=== PATIENT | female | born 1945 | race Caucasian/White ===

== ENCOUNTER 2017-06-09 02:23 | Day surgery (SDC) | payer MEDICARE, OTHER ==
[~2017-06-09] VITALS: Ht 160 cm; Wt 59.5 kg
[~2017-06-09 02:23] MED LIST: ASPI325; ASPI325 PO; ASPI81CH PO; ATEN50 PO; Altoprev40 MG PO; BUTACE PO; CELE200; CEPH500 PO; CHLCLI; CHOL10002 PO; CITA20 PO; Carvedilol25 MG PO; DIAZ10 PO; FLUO20 PO; FURO40 PO; HYDACE5 PO; HYDR1TAB94 PO; LANS30EC; LANS30EC PO; LEVSOD50 PO; LISI20 PO; LISI5 PO; LISINOPRIL PO; LOPRESSOR; LOVA20 PO; LOVA40; METO100ER; MULVITMIND PO; NEBI10 PO; Nortriptyline H75 MG PO; OMEP20ER PO; OXYACE5T PO; PANT40 PO; POTA10T PO; POTCHL10ER PO; PREG50 PO; PROP80ER PO; Prozac PO; Prozac40 MG PO; SPIR25 PO; TRAM50 PO; UBID100 PO; VICODIN 5-3001 EACH PO; ZEGERID OTC PO; ZOCOR; [UNRECOGNIZED DRUG - REMARK]; [UNRECOGNIZED DRUG - REMARK]; [UNRECOGNIZED DRUG - REMARK]; [UNRECOGNIZED DRUG - REMARK]; [UNRECOGNIZED DRUG - REMARK]; [UNRECOGNIZED DRUG - REMARK]; [UNRECOGNIZED DRUG - REMARK]; [UNRECOGNIZED DRUG - REMARK]; [UNRECOGNIZED DRUG - REMARK]
[2017-06-09] MEDS ORDERED: PROP80ER PO (06:46)
[2017-06-09] MEDS ORDERED: FURO20 PO (06:48)
[2017-06-09] MEDS ORDERED: Estradiol1 MG VAG (06:48)
[2017-06-09] MEDS ORDERED: NITR.4SL SL (06:50)
[2018-01-10] MEDS ORDERED: DILT120 PO (12:11)
[2018-01-10] MEDS ORDERED: FURO40 PO (12:11)
== END 2017-06-09 22:49 | disposition home or self-care (01) ==
LOC: MHTC 02:23
PROC: B24BZZ4 Ultrasonography of Heart with Aorta, Transesophageal (ICD-10-PCS; principal; 2017-06-09)
DX: I08.0 Rheumatic disorders of both mitral and aortic valves (principal); I25.9 Chronic ischemic heart disease, unspecified; I70.0 Atherosclerosis of aorta; I50.20 Unspecified systolic (congestive) heart failure; I44.7 Left bundle-branch block, unspecified; I11.0 Hypertensive heart disease with heart failure; E78.5 Hyperlipidemia, unspecified; I25.2 Old myocardial infarction; K21.9 Gastro-esophageal reflux disease without esophagitis; F32.9 Major depressive disorder, single episode, unspecified; Z79.899 Other long term (current) drug therapy; E03.9 Hypothyroidism, unspecified; Z79.82 Long term (current) use of aspirin; Z87.891 Personal history of nicotine dependence
CPT/HCPCS: 93312; 93325; 99152; J2250; J3010; J7030

== ENCOUNTER 2017-07-28 14:28 | Emergency (ER) | payer MEDICARE, OTHER ==
[~2017-07-28] VITALS: Ht 160 cm; Wt 54.4 kg
[~2017-07-28 14:28] MED LIST changes: +Estradiol1 MG VAG; +FURO20 PO; +NITR.4SL SL
[2017-07-28 15:35] LABS: BASOPHILS PERCENT AUTO 1 % (0-2); EOSINOPHILS ABSOLUTE AUTO 0.16 K/mm3 (0.00-0.68); EOSINOPHILS PERCENT AUTO 2 % (0-6); Hematocrit 43.1 % (33.0-51.0); Hemoglobin 13.9 g/dL (11.5-16.0); IMMATURE GRAN ABSOLUTE AUTO 0.03 K/mm3 (0.00-0.10); IMMATURE GRAN PERCENT AUTO 0 % (0-1); LYMPHOCYTES ABSOLUTE AUTO 1.46 K/mm3 (0.84-5.20); LYMPHOCYTES PERCENT AUTO 20 % (21-46); MONOCYTES PERCENT AUTO 11 % (4-13); Mean Corpuscular HGB Conc 32.3 g/dL (31.5-36.5); Mean Corpuscular Volume 93 fL (80-100); NEUTROPHILS PERCENT AUTO 64 % (41-73); Platelet Count 295 K/mm3 (150-400); RDW Coefficient Variation 13.2 % (11.7-14.2); RDW Standard Deviation 45.6 fL (35.1-46.3); Red Blood Cell Count 4.63 M/mm3 (3.80-5.20); White Blood Cell Count 7.15 K/mm3 (4.00-11.30)
[2017-07-28] MEDS ORDERED: POTCHL10ER PO (15:44)
[2017-07-28] MEDS ORDERED: LISI5 PO (15:45)
[2017-07-28] MEDS ORDERED: Lovastatin20 MG PO (15:45)
[2017-07-28 15:54] LABS: Alanine Aminotransfer (ALT/SGP 21 U/L (12-78); Albumin, Blood 4.1 g/dL (3.4-5.0); Albumin/Globulin Ratio 0.9 (0.8-1.8); Alk Phos 124 U/L (50-136); Anion Gap 10 mmol/L (6-16); Aspartate Aminotrans (AST/SGOT 20 U/L (12-37); Bilirubin, Total 0.3 mg/dL (0.1-1.0); Blood Urea Nitrogen 25 mg/dL (8-24); Bun/Creatinine Ratio 22.1 (12.0-20.0); CO2, Blood 26 mmol/L (21-32); Calcium, Blood 9.8 mg/dL (8.5-10.1); Chloride, Blood 101 mmol/L (98-108); Creatinine, Blood 1.13 mg/dL (0.40-1.00); Globulin, Blood 4.5 g/dL (2.2-4.0); Glomerular Filtration Rate 50 (60-); Glucose, Blood 91 mg/dL (70-99); Potassium, Blood 4.2 mmol/L (3.5-5.5); Sodium, Blood 137 mmol/L (136-145); Total Protein, Blood 8.6 g/dL (6.4-8.2)
[2017-07-28 16:44] LABS: Troponin I <0.015 ng/mL (0.000-0.040)
[2018-01-10] MEDS ORDERED: FURO40 PO (12:11)
[2018-01-10] MEDS ORDERED: DILT120 PO (12:11)
== END 2017-07-28 17:35 | disposition home or self-care (01) ==
LOC: ER 14:28
PROVIDERS: Emergency Medicine
DX: R53.1 Weakness (principal); Z88.8 Allergy status to other drugs, medicaments and biological substances; Z79.899 Other long term (current) drug therapy; Z79.82 Long term (current) use of aspirin; I25.2 Old myocardial infarction; I10 Essential (primary) hypertension; E78.5 Hyperlipidemia, unspecified; I48.91 Unspecified atrial fibrillation; F32.9 Major depressive disorder, single episode, unspecified; Z87.891 Personal history of nicotine dependence
CPT/HCPCS: 36415; 71046; 80053; 81000; 84484; 85025; 93005; 93010; 99283

== ENCOUNTER 2018-01-01 20:21 | Inpatient (IN) | payer MEDICARE, OTHER ==
[~2018-01-01] VITALS: Ht 160 cm; Wt 56.0 kg
[~2018-01-01 20:21] MED LIST changes: +Lovastatin20 MG PO
[2018-01-01] MEDS ORDERED: DULO30 PO (20:45)
[2018-01-01 21:03] LABS: BASOPHILS ABSOLUTE AUTO 0.16 K/mm3 (0.00-0.23); BASOPHILS PERCENT AUTO 2 % (0-2); EOSINOPHILS ABSOLUTE AUTO 0.32 K/mm3 (0.00-0.68); EOSINOPHILS PERCENT AUTO 3 % (0-6); IMMATURE GRAN ABSOLUTE AUTO 0.03 K/mm3 (0.00-0.10); IMMATURE GRAN PERCENT AUTO 0 % (0-1); LYMPHOCYTES ABSOLUTE AUTO 2.42 K/mm3 (0.84-5.20); LYMPHOCYTES PERCENT AUTO 24 % (21-46); MONOCYTES PERCENT AUTO 12 % (4-13); Mean Corpuscular HGB 30.3 pg (26.0-34.0); Mean Corpuscular HGB Conc 32.5 g/dL (31.5-36.5); Mean Corpuscular Volume 93 fL (80-100); Mean Platelet Volume 10.3 fL (9.1-12.4); NEUTROPHILS ABSOLUTE AUTO 5.96 K/mm3 (1.96-9.15); NEUTROPHILS PERCENT AUTO 59 % (41-73); Platelet Count 383 K/mm3 (150-400); RDW Coefficient Variation 12.7 % (11.7-14.2); RDW Standard Deviation 43.8 fL (35.1-46.3); Red Blood Cell Count 4.29 M/mm3 (3.80-5.20); White Blood Cell Count 10.09 K/mm3 (4.00-11.30)
[2018-01-01 21:23] LABS: Albumin, Blood 3.8 g/dL (3.4-5.0); Albumin/Globulin Ratio 0.9 (0.8-1.8); Bilirubin, Total 0.5 mg/dL (0.1-1.0); Bun/Creatinine Ratio 19.7 (12.0-20.0); Calcium, Blood 9.1 mg/dL (8.5-10.1); Creatinine, Blood 1.32 mg/dL (0.40-1.00); Globulin, Blood 4.4 g/dL (2.2-4.0); Potassium, Blood 3.8 mmol/L (3.5-5.5); Total Protein, Blood 8.2 g/dL (6.4-8.2); Troponin I 0.098 ng/mL (0.000-0.040)
[2018-01-02 05:14] LABS: Bun/Creatinine Ratio 23.5 (12.0-20.0); Calcium, Blood 8.7 mg/dL (8.5-10.1); Creatinine, Blood 1.15 mg/dL (0.40-1.00); Magnesium, Blood 1.9 mg/dL (1.6-2.4); Potassium, Blood 3.6 mmol/L (3.5-5.5); Troponin I 0.125 ng/mL (0.000-0.040)
[2018-01-02] MEDS ORDERED: NITR.4SL SL (13:07)
[2018-01-03 03:49] LABS: Hematocrit 42.6 % (33.0-51.0); Mean Corpuscular HGB 30.4 pg (26.0-34.0); Mean Corpuscular HGB Conc 32.9 g/dL (31.5-36.5); Mean Corpuscular Volume 92 fL (80-100); RDW Coefficient Variation 12.9 % (11.7-14.2); RDW Standard Deviation 43.9 fL (35.1-46.3); Red Blood Cell Count 4.61 M/mm3 (3.80-5.20); White Blood Cell Count 10.34 K/mm3 (4.00-11.30)
[2018-01-03 03:50] LABS: Platelet Count 211 K/mm3 (150-400)
[2018-01-03 04:05] LABS: Bun/Creatinine Ratio 24.4 (12.0-20.0); Calcium, Blood 8.8 mg/dL (8.5-10.1); Creatinine, Blood 1.31 mg/dL (0.40-1.00); Potassium, Blood 4.6 mmol/L (3.5-5.5)
[2018-01-03 11:38] LABS: Source, Urine Voided
[2018-01-03 12:01] LABS: Bilirubin, Urine Neg (Neg); Blood, Urine 1+ (Neg); Glucose Qualitative, Urine Neg (Neg); Ketones, Urine Neg (Neg); Leukocyte Esterase, Urine 3+ (Neg); Nitrite, Urine Neg (Neg); Protein, Urine 3+ (Neg); Specific Gravity, Urine 1.025 (1.003-1.022); Urobilinogen, Urine 1+ (Normal)
[2018-01-03 12:11] LABS: Color, Urine Yellow (P-Yellow)
[2018-01-03 12:12] LABS: Appearance, Urine Hazy (Clear)
[2018-01-03 12:13] LABS: Bacteria Mod /hpf; Red Blood Cells, Urine 0-2 /hpf (0-2); Squamous Epithelial Cells Mod /hpf (Few)
[2018-01-04] MEDS ORDERED: OMEPRAZOLE MAGN20 MG PO (15:55)
[2018-01-04] MEDS ORDERED: ALUM320SU PO (16:28)
[2018-01-04] MEDS ORDERED: AMOCLA250S PO (16:29)
[2018-01-04] MEDS ORDERED: MECL12.5 PO (16:30)
[2018-01-10] MEDS ORDERED: FURO40 PO (12:11)
[2018-01-10] MEDS ORDERED: DILT120 PO (12:11)
== END 2018-01-04 18:30 | disposition home or self-care (01) | DRG 309 ==
LOC: ER 20:21 → ICUW 20:22 → PCU 01-02 15:00
PROVIDERS: Emergency Medicine; Internal Medicine
DX: I47.1 Supraventricular tachycardia (principal); N17.9 Acute kidney failure, unspecified; E87.1 Hypo-osmolality and hyponatremia; I24.8 Other forms of acute ischemic heart disease; I50.42 Chronic combined systolic (congestive) and diastolic (congestive) heart failure; I25.10 Atherosclerotic heart disease of native coronary artery without angina pectoris; I25.5 Ischemic cardiomyopathy; I08.0 Rheumatic disorders of both mitral and aortic valves; K21.9 Gastro-esophageal reflux disease without esophagitis; K22.2 Esophageal obstruction; G43.909 Migraine, unspecified, not intractable, without status migrainosus; M79.7 Fibromyalgia; Z95.1 Presence of aortocoronary bypass graft; Z87.891 Personal history of nicotine dependence; I25.2 Old myocardial infarction; I48.91 Unspecified atrial fibrillation; I95.9 Hypotension, unspecified; F41.9 Anxiety disorder, unspecified; Z79.82 Long term (current) use of aspirin; H83.09 Labyrinthitis, unspecified ear; R13.10 Dysphagia, unspecified
CPT/HCPCS: 36415; 71046; 76770; 80048; 80053; 81001; 83735; 83880; 84484; 85025; 85027; 87086; 92610; 93005; 93010; 96361; 96374; 96375; 96376; 99285-25; G8996; G8997; G8998; J0153; J1650; J2405; J3010; J7030

== ENCOUNTER 2018-02-08 22:46 | Inpatient (IN) | payer MEDICARE, OTHER ==
[~2018-02-08] VITALS: Ht 160 cm; Wt 51.0 kg
[~2018-02-08 22:46] MED LIST changes: +ALUM320SU PO; +AMOCLA250S PO; +DILT120 PO; +DULO30 PO; +MECL12.5 PO; +OMEPRAZOLE MAGN20 MG PO
[2018-02-08 23:51] LABS: BASOPHILS PERCENT AUTO 2 % (0-2); EOSINOPHILS ABSOLUTE AUTO 0.58 K/mm3 (0.00-0.68); EOSINOPHILS PERCENT AUTO 5 % (0-6); Hematocrit 37.2 % (33.0-51.0); Hemoglobin 11.8 g/dL (11.5-16.0); IMMATURE GRAN ABSOLUTE AUTO 0.03 K/mm3 (0.00-0.10); IMMATURE GRAN PERCENT AUTO 0 % (0-1); LYMPHOCYTES ABSOLUTE AUTO 3.16 K/mm3 (0.84-5.20); LYMPHOCYTES PERCENT AUTO 26 % (21-46); MONOCYTES ABSOLUTE AUTO 1.16 K/mm3 (0.16-1.47); MONOCYTES PERCENT AUTO 10 % (4-13); Mean Corpuscular HGB 29.2 pg (26.0-34.0); Mean Corpuscular HGB Conc 31.7 g/dL (31.5-36.5); Mean Corpuscular Volume 92 fL (80-100); Mean Platelet Volume 11.9 fL (9.1-12.4); NEUTROPHILS ABSOLUTE AUTO 7.04 K/mm3 (1.96-9.15); NEUTROPHILS PERCENT AUTO 58 % (41-73); Platelet Count 270 K/mm3 (150-400); RDW Coefficient Variation 14.7 % (11.7-14.2); RDW Standard Deviation 48.7 fL (35.1-46.3); Red Blood Cell Count 4.04 M/mm3 (3.80-5.20); White Blood Cell Count 12.17 K/mm3 (4.00-11.30)
[2018-02-09 00:12] LABS: Alanine Aminotransfer (ALT/SGP 21 U/L (12-78); Albumin, Blood 3.4 g/dL (3.4-5.0); Albumin/Globulin Ratio 0.8 (0.8-1.8); Alk Phos 88 U/L (50-136); Anion Gap 9 mmol/L (6-16); Aspartate Aminotrans (AST/SGOT 24 U/L (12-37); Bilirubin, Total 0.8 mg/dL (0.1-1.0); Blood Urea Nitrogen 28 mg/dL (8-24); Bun/Creatinine Ratio 32.7 (12.0-20.0); CO2, Blood 27 mmol/L (21-32); Calcium, Blood 8.8 mg/dL (8.5-10.1); Chloride, Blood 100 mmol/L (98-108); Creatinine, Blood 0.86 mg/dL (0.40-1.00); Globulin, Blood 4.2 g/dL (2.2-4.0); Glomerular Filtration Rate >60 (60-); Glucose, Blood 110 mg/dL (70-99); Sodium, Blood 136 mmol/L (136-145); Total Protein, Blood 7.6 g/dL (6.4-8.2)
[2018-02-09 03:43] LABS: D-Dimer, Quantitative 1.34 mg/L FEU (0.00-0.52); International Normalized Ratio 1.31; Prothrombin Time Results 13.3 Sec (9.7-11.5)
[2018-02-09 03:45] LABS: Creatine Kinase MB 1.9 ng/mL (0.0-3.6); Creatine Kinase MB Index 3.6 (0.0-4.0); Troponin I 0.029 ng/mL (0.000-0.040)
[2018-02-09 04:19] LABS: Source, Urine Clean Catch
[2018-02-09 04:24] LABS: Bilirubin, Urine Neg (Neg); Blood, Urine Neg (Neg); Glucose Qualitative, Urine Neg (Neg); Ketones, Urine Neg (Neg); Leukocyte Esterase, Urine 1+ (Neg); Nitrite, Urine Neg (Neg); Protein, Urine Neg (Neg); Urobilinogen, Urine NORM (Normal)
[2018-02-09 04:31] LABS: Appearance, Urine Clear (Clear); Color, Urine Yellow (P-Yellow)
[2018-02-09 04:38] LABS: Bacteria Rare /hpf; Red Blood Cells, Urine 0-2 /hpf (0-2); Squamous Epithelial Cells Few /hpf (Few)
[2018-02-09] MEDS ORDERED: Morphine Sulfat15 MG PO (16:08)
[2018-02-09] MEDS ORDERED: Cartia Xt120 MG PO (16:22)
[2018-02-09] MEDS ORDERED: ATOR40TA PO (16:23)
[2018-02-09] MEDS ORDERED: SPIR25 PO (16:24)
[2018-02-09] MEDS ORDERED: Micro-K10 MEQ PO (16:24)
[2018-02-09] MEDS ORDERED: NORT75 PO (16:25)
[2018-02-10] MEDS ORDERED: LANOXIN125 MCG PO (11:45)
[2018-02-10] MEDS ORDERED: Prinivil10 MG PO (11:46)
[2018-02-10] MEDS ORDERED: XARELTO15 MG PO (11:47)
== END 2018-02-10 14:03 | disposition home or self-care (01) | DRG 308 ==
LOC: ER 22:46 → PCU 23:46
PROVIDERS: Emergency Medicine; Internal Medicine
DX: I48.91 Unspecified atrial fibrillation (principal); I50.23 Acute on chronic systolic (congestive) heart failure; I25.2 Old myocardial infarction; I47.1 Supraventricular tachycardia; I42.9 Cardiomyopathy, unspecified; Z95.5 Presence of coronary angioplasty implant and graft; Z87.891 Personal history of nicotine dependence; I95.9 Hypotension, unspecified; K21.9 Gastro-esophageal reflux disease without esophagitis; R42 Dizziness and giddiness; I25.10 Atherosclerotic heart disease of native coronary artery without angina pectoris
CPT/HCPCS: 36415; 71046; 80053; 81001; 82550; 82553; 83880; 84484; 85025; 85379; 85610; 85730; 93005; 93010; 96365; 96366; 99285-25; J1160; J1644; J1940

== ENCOUNTER 2018-05-31 19:08 | Emergency (ER) | payer MEDICARE, OTHER ==
[~2018-05-31] VITALS: Ht 160 cm; Wt 47.6 kg
[~2018-05-31 19:08] MED LIST changes: +ATOR40TA PO; +Cartia Xt120 MG PO; +LANOXIN125 MCG PO; +Micro-K10 MEQ PO; +Morphine Sulfat15 MG PO; +NORT75 PO; +Prinivil10 MG PO; +XARELTO15 MG PO
[2018-05-31 19:56] LABS: BASOPHILS ABSOLUTE AUTO 0.11 K/mm3 (0.00-0.23); BASOPHILS PERCENT AUTO 1 % (0-2); EOSINOPHILS PERCENT AUTO 6 % (0-6); Hematocrit 33.4 % (33.0-51.0); Hemoglobin 10.5 g/dL (11.5-16.0); IMMATURE GRAN ABSOLUTE AUTO 0.02 K/mm3 (0.00-0.10); IMMATURE GRAN PERCENT AUTO 0 % (0-1); LYMPHOCYTES ABSOLUTE AUTO 1.58 K/mm3 (0.84-5.20); LYMPHOCYTES PERCENT AUTO 19 % (21-46); MONOCYTES ABSOLUTE AUTO 0.78 K/mm3 (0.16-1.47); MONOCYTES PERCENT AUTO 9 % (4-13); Mean Corpuscular HGB Conc 31.4 g/dL (31.5-36.5); Mean Corpuscular Volume 95 fL (80-100); NEUTROPHILS ABSOLUTE AUTO 5.35 K/mm3 (1.96-9.15); NEUTROPHILS PERCENT AUTO 64 % (41-73); Platelet Count 220 K/mm3 (150-400); RDW Coefficient Variation 15.4 % (11.7-14.2); RDW Standard Deviation 53.7 fL (35.1-46.3); White Blood Cell Count 8.34 K/mm3 (4.00-11.30)
[2018-05-31 21:13] LABS: Alanine Aminotransfer (ALT/SGP 14 U/L (12-78); Albumin, Blood 3.4 g/dL (3.4-5.0); Alk Phos 76 U/L (50-136); Anion Gap 8 mmol/L (6-16); Aspartate Aminotrans (AST/SGOT 23 U/L (12-37); Bilirubin, Total 0.8 mg/dL (0.1-1.0); Blood Urea Nitrogen 19 mg/dL (8-24); Bun/Creatinine Ratio 22.9 (12.0-20.0); CO2, Blood 27 mmol/L (21-32); Calcium, Blood 8.1 mg/dL (8.5-10.1); Chloride, Blood 102 mmol/L (98-108); Creatinine, Blood 0.83 mg/dL (0.40-1.00); Globulin, Blood 3.4 g/dL (2.2-4.0); Glomerular Filtration Rate >60 (60-); Glucose, Blood 114 mg/dL (70-99); Sodium, Blood 137 mmol/L (136-145); Total Protein, Blood 6.8 g/dL (6.4-8.2); Troponin I 0.042 ng/mL (0.000-0.040)
[2018-05-31 21:32] LABS: Influenza A Negative (NEGATIVE); Influenza B Negative (NEGATIVE)
== END 2018-05-31 22:39 | disposition home or self-care (01) ==
LOC: ER 19:08
PROVIDERS: Emergency Medicine
DX: I48.91 Unspecified atrial fibrillation (principal); Z91.048 Other nonmedicinal substance allergy status; Z79.899 Other long term (current) drug therapy; Z79.82 Long term (current) use of aspirin; I25.2 Old myocardial infarction; Z95.1 Presence of aortocoronary bypass graft; Z87.891 Personal history of nicotine dependence
CPT/HCPCS: 36415; 71046; 80053; 84484; 85025; 87804; 93005; 93010; 99285-25

== ENCOUNTER → 2018-11-02 | Outpatient (CLI) | payer MEDICARE, OTHER ==
[2018-11-02 18:48] LABS: BASOPHILS ABSOLUTE AUTO 0.13 K/mm3 (0.00-0.23); BASOPHILS PERCENT AUTO 2 % (0-2); EOSINOPHILS ABSOLUTE AUTO 0.21 K/mm3 (0.00-0.68); EOSINOPHILS PERCENT AUTO 2 % (0-6); Hematocrit 36.2 % (33.0-51.0); IMMATURE GRAN ABSOLUTE AUTO 0.02 K/mm3 (0.00-0.10); IMMATURE GRAN PERCENT AUTO 0 % (0-1); LYMPHOCYTES ABSOLUTE AUTO 2.14 K/mm3 (0.84-5.20); LYMPHOCYTES PERCENT AUTO 25 % (21-46); MONOCYTES ABSOLUTE AUTO 0.98 K/mm3 (0.16-1.47); MONOCYTES PERCENT AUTO 11 % (4-13); Mean Corpuscular HGB 30.5 pg (26.0-34.0); Mean Corpuscular HGB Conc 33.1 g/dL (31.5-36.5); Mean Corpuscular Volume 92 fL (80-100); NEUTROPHILS ABSOLUTE AUTO 5.22 K/mm3 (1.96-9.15); NEUTROPHILS PERCENT AUTO 60 % (41-73); Platelet Count 298 K/mm3 (150-400); RDW Coefficient Variation 15.5 % (11.7-14.2); RDW Standard Deviation 52.3 fL (35.1-46.3); Red Blood Cell Count 3.94 M/mm3 (3.80-5.20)
[2018-11-02 18:52] LABS: Calcium, Blood 9.4 mg/dL (8.5-10.1); Creatinine, Blood 1.11 mg/dL (0.40-1.00); Potassium, Blood 3.8 mmol/L (3.5-5.5)
== END | disposition home or self-care (01) ==
LOC: LAB EV 18:44 → LAB SHORT 18:44
PROVIDERS: Physician Assistant Surgical
DX: N39.0 Urinary tract infection, site not specified (principal); R53.83 Other fatigue
CPT/HCPCS: 80048; 85025; 87086

== ENCOUNTER → 2019-02-16 | Outpatient (CLI) | payer MEDICARE, OTHER ==
[2019-02-16 14:42] LABS: U Amphetamine Screen Not Detected; U Barbituate Screen Not Detected; U Benzodiazapine Screen Not Detected; U Buprenorphine Screen Not Detected; U Cannabinoids Screen Not Detected; U Cocaine Screen Not Detected; U Methadone Screen Not Detected; U Methamphetamine Screen Not Detected; U Opiates Screen DETECTED; U Oxycodone Screen Not Detected; U Phencyclidine Screen Not Detected; U Propoxyphene Screen Not Detected
== END | disposition home or self-care (01) ==
LOC: LAB SHORT 11:54 → LAB 11:54
PROVIDERS: Internal Medicine
DX: Z51.81 Encounter for therapeutic drug level monitoring (principal); Z79.891 Long term (current) use of opiate analgesic

== ENCOUNTER 2020-02-06 16:22 | Observation (INO) | payer MEDICARE, OTHER ==
[~2020-02-06] VITALS: Ht 160 cm; Wt 41.6 kg
[~2020-02-06 16:22] MED LIST changes: -CHOL10002 PO; -LANOXIN125 MCG PO
[2020-02-06 17:41] LABS: BASOPHILS ABSOLUTE AUTO 0.09 K/mm3 (0.00-0.23); BASOPHILS PERCENT AUTO 1 % (0-2); EOSINOPHILS ABSOLUTE AUTO 0.09 K/mm3 (0.00-0.68); EOSINOPHILS PERCENT AUTO 1 % (0-6); Hemoglobin 13.5 g/dL (11.5-16.0); IMMATURE GRAN ABSOLUTE AUTO 0.03 K/mm3 (0.00-0.10); IMMATURE GRAN PERCENT AUTO 0 % (0-1); LYMPHOCYTES ABSOLUTE AUTO 1.25 K/mm3 (0.84-5.20); LYMPHOCYTES PERCENT AUTO 12 % (21-46); MONOCYTES ABSOLUTE AUTO 0.94 K/mm3 (0.16-1.47); MONOCYTES PERCENT AUTO 9 % (4-13); Mean Corpuscular HGB 30.5 pg (26.0-34.0); Mean Corpuscular HGB Conc 32.9 g/dL (31.5-36.5); Mean Corpuscular Volume 93 fL (80-100); Mean Platelet Volume 11.6 fL (9.1-12.4); NEUTROPHILS ABSOLUTE AUTO 7.73 K/mm3 (1.96-9.15); NEUTROPHILS PERCENT AUTO 76 % (41-73); Platelet Count 261 K/mm3 (150-400); RDW Coefficient Variation 14.6 % (11.7-14.2); RDW Standard Deviation 50.2 fL (35.1-46.3); Red Blood Cell Count 4.43 M/mm3 (3.80-5.20); White Blood Cell Count 10.13 K/mm3 (4.00-11.30)
[2020-02-06 18:03] LABS: Albumin, Blood 4.2 g/dL (3.4-5.0); Bilirubin, Total 0.7 mg/dL (0.1-1.0); Bun/Creatinine Ratio 29.9 (12.0-20.0); Calcium, Blood 10.1 mg/dL (8.5-10.1); Creatinine, Blood 1.07 mg/dL (0.40-1.00); Globulin, Blood 4.1 g/dL (2.2-4.0); Total Protein, Blood 8.3 g/dL (6.4-8.2); Troponin I 0.033 ng/mL (0.000-0.040)
[2020-02-06] MEDS ORDERED: OMEP20ER PO (18:12)
[2020-02-06] MEDS ORDERED: GABA100 PO (18:13)
[2020-02-06] MEDS ORDERED: FURO40 PO (18:13)
[2020-02-06] MEDS ORDERED: Prozac40 MG PO (18:13)
[2020-02-06] MEDS ORDERED: SPIR25 PO (18:13)
[2020-02-06] MEDS ORDERED: CARV25 PO (18:13)
[2020-02-06] MEDS ORDERED: XARELTO15 MG PO (18:14)
[2020-02-06] MEDS ORDERED: ENTRESTO 49 MG1 EACH PO (18:14)
[2020-02-06] MEDS ORDERED: ATOR40TA PO (18:15)
[2020-02-06] MEDS ORDERED: HYDROCODONE-AC1 EAC8 PO (18:15)
[2020-02-06] MEDS ORDERED: LANOXIN125 MCG PO (18:18)
[2020-02-06 19:03] LABS: Digoxin (Lanoxin) 2.05 ug/mL (0.80-2.00)
[2020-02-06] MEDS ORDERED: VITAMIN D325 MC3 PO (19:29)
[2020-02-07 02:14] LABS: BASOPHILS ABSOLUTE AUTO 0.08 K/mm3 (0.00-0.23); BASOPHILS PERCENT AUTO 1 % (0-2); EOSINOPHILS ABSOLUTE AUTO 0.15 K/mm3 (0.00-0.68); EOSINOPHILS PERCENT AUTO 2 % (0-6); Hemoglobin 12.5 g/dL (11.5-16.0); IMMATURE GRAN ABSOLUTE AUTO 0.04 K/mm3 (0.00-0.10); IMMATURE GRAN PERCENT AUTO 0 % (0-1); LYMPHOCYTES ABSOLUTE AUTO 2.14 K/mm3 (0.84-5.20); LYMPHOCYTES PERCENT AUTO 22 % (21-46); MONOCYTES ABSOLUTE AUTO 1.22 K/mm3 (0.16-1.47); MONOCYTES PERCENT AUTO 13 % (4-13); Mean Corpuscular HGB 30.2 pg (26.0-34.0); Mean Corpuscular HGB Conc 32.9 g/dL (31.5-36.5); Mean Corpuscular Volume 92 fL (80-100); NEUTROPHILS ABSOLUTE AUTO 6.14 K/mm3 (1.96-9.15); NEUTROPHILS PERCENT AUTO 63 % (41-73); Platelet Count 215 K/mm3 (150-400); RDW Coefficient Variation 14.8 % (11.7-14.2); RDW Standard Deviation 50.4 fL (35.1-46.3); Red Blood Cell Count 4.14 M/mm3 (3.80-5.20); White Blood Cell Count 9.77 K/mm3 (4.00-11.30)
[2020-02-07 02:32] LABS: Anion Gap 6 mmol/L (6-16); Blood Urea Nitrogen 29 mg/dL (8-24); Bun/Creatinine Ratio 31.9 (12.0-20.0); CO2, Blood 28 mmol/L (21-32); Calcium, Blood 9.3 mg/dL (8.5-10.1); Chloride, Blood 104 mmol/L (98-108); Creatinine, Blood 0.91 mg/dL (0.40-1.00); Glomerular Filtration Rate >60 (60-); Glucose, Blood 100 mg/dL (70-99); Potassium, Blood 3.8 mmol/L (3.5-5.5); Sodium, Blood 138 mmol/L (136-145); Troponin I 0.067 ng/mL (0.000-0.040)
--- NOTE | 2020-02-07 05:35 | NUR ---
SHIFT SUMMARY PT SLEEPING IN ROOM COMFORTABLY AT THIS TIME. NO ACUTE CHANGES IN STATUS T/O NIGHT. PT ARRIVED TO UNIT FROM ED AND WAS ABLE TO STAND AND MOVE SELF TO BED W/O ASSIST. PT REPORTED CP AND WAS MEDICATED ONCE PER EMAR. REPORTED PAIN COMPLETELY RELIEVED. PT DENIED ANY SOB. RESP EVEN UNLABORED ON RA W/ SATS >92%. DENIED OTHER NEEDS. CALL LIGHT IN REACH.
--- NOTE | 2020-02-07 16:41 | NUR ---
SHIFT NOTE PT HAS HAD STRESS TEST TODAY, AWAITING SECOND PORTION OF IMAGING. VSS T/O THE SHIFT. PT HAS BEEN RESTIN CP FREE T/O THE DAY. A/O X3. SPOUSE HAS BEEN IN WITH PT FOR THE MORNING. PT OTHERWISE HAS BEEN RESTING WELL PAIN FREE FOR THE DAY. THERE ARE NO CHANGES TO JERICHO DISCUSS AT THE TIME OF THIS NOTE
--- NOTE | 2020-02-07 17:59 | NUR ---
Per admit trigger, I met with Liat to offer education about advanced care planning. She took an Advanced Directive packet and would like to speak to her . Answered questions for her and offered continued support. I will remain available.
--- NOTE | 2020-02-08 05:28 | NUR ---
SHIFT SUMMARY PT SLEEPING IN ROOM COMFORTABLY AT THIS TIME. NO ACUTE CHANGES IN STATUS T/O NIGHT. PT SLEPT WELL DENIED CP OR SOB. RESP EVEN UNLABORED ON RA W/ SATS >92%. PT WOKE TWICE TO USE RB WITH SBA. DENIED OTHER NEEDS. PT MADE NPO AT MIDNIGHT FOR POSSIBLE ANGIO THIS AM. CALL LIGHT IN REACH. BED ALARM ON D/T CONFUSION.
--- NOTE | 2020-02-08 10:30 | NUR ---
PT TO [facility]
--- NOTE | 2020-02-08 13:35 | NUR ---
Palliative Care Consult for AD/POLST and Advanced Care Planning. Pt admitted to hospital for CAD with Unstable Angina. Pt's medical history and comorbidities include: Afic, CAD, OK, CABG, CHF with Ef of 25-30%, and Skin Cancer. Pt is A&O and denies pain at this time. Pt denies dyspnea and anxiety. Pt reports mild but managble nausea. Engaged in therapeutic Conversation regarding Advanced Care Planning. Pt reports living at home with her . Pt has children most of whom are scattered living out of state. Pt reports ability to do her ADLs independently and having a good quality of life. Provided gentle education regarding disease process including trajectory of disease. Educated on the importance of routine conversations with PCP and developing multiple plans as disease takes its coarse. During conversation this RN assisted Pt with eating her meal due to dressings on her arms. Pt listens to education but does not respond or provide insight. Educated on life sustaining measures including risk factors and implications. Discussed the importance of completing POLST or AD. Pt states having an AD at home and will complete with her . Pt's wishes are to remain a full code. Listened as Pt reports eagerness to get home to her dog. Pt reports no concerns at this time. Spoke with Bedside GRACIA Hancock and discussed case. Palliative Care will remain available.
[2020-02-08] MEDS ORDERED: Isosorbide Mono30 MG PO (15:28)
[2020-02-08] MEDS ORDERED: CARV6.25 PO (15:30)
--- NOTE | 2020-02-08 17:36 | NUR ---
TR BANDS ARE DEFLATED, NO ACTIVE BLEEDING, TR BANDS ARE AWAITING REMOVAL IN 30MINUTES ONCE AIR HAS BEEN OUT FOR ONE HOUR. PULSES ARE STRONG RADIAL BILAT. GOO CAP REFILL. SKIN PWD AND INTACT
--- NOTE | 2020-02-08 18:38 | NUR ---
PT AND FAMILY EXPRESSED UNDERSTANDING OF DC TEACHING. IV REMOVED AND PRESSURE DRESSED. PT AND FAMILY EXPRESSED UNDERSTANDING OF TR BAND HOME CARE. PROVIDED WITH FOLLOW APPOINTMENT DATES
== END 2020-02-08 18:37 | disposition home or self-care (01) ==
LOC: ER 16:22 → PCU 16:23 → ICUW 20:37 → PCU 20:50
PROVIDERS: Emergency Medicine; Nurse Practitioner Acute Care; Physician Assistant; ADMIT Internal Medicine
DX: I25.110 Atherosclerotic heart disease of native coronary artery with unstable angina pectoris (principal); E78.5 Hyperlipidemia, unspecified; Y71.2 Prosthetic and other implants, materials and accessory cardiovascular devices associated with adverse incidents; T82.855A Stenosis of coronary artery stent, initial encounter; I48.21 Permanent atrial fibrillation; I11.0 Hypertensive heart disease with heart failure; I50.40 Unspecified combined systolic (congestive) and diastolic (congestive) heart failure; K21.9 Gastro-esophageal reflux disease without esophagitis; Z95.1 Presence of aortocoronary bypass graft; Z87.891 Personal history of nicotine dependence; Z79.899 Other long term (current) drug therapy; I25.2 Old myocardial infarction; H91.90 Unspecified hearing loss, unspecified ear; Z88.8 Allergy status to other drugs, medicaments and biological substances; Z79.01 Long term (current) use of anticoagulants; F32.9 Major depressive disorder, single episode, unspecified
CPT/HCPCS: 36415; 71046; 76937; 78452; 80048; 80053; 80162; 83735; 83880; 84100; 84484; 85025; 85347; 93005; 93010; 93017; 93308; 93321; 93455; 94664; 94760; 96374; 96376; 98960; 99152; 99153; 99285-25; A9270; A9270-GY; A9500; C1769; C1894; G0378; J0706; J1644; J2250; J2785; J3010; J7030; J7050; Q9967

== ENCOUNTER 2021-06-12 04:34 | Emergency (ER) | payer MEDICARE, OTHER ==
[~2021-06-12] VITALS: Ht 162.6 cm; Wt 59.0 kg
[~2021-06-12 04:34] MED LIST changes: +CARV25 PO; +CARV6.25 PO; +ENTRESTO 49 MG1 EACH PO; +GABA100 PO; +HYDROCODONE-AC1 EAC8 PO; +Isosorbide Mono30 MG PO; +LANOXIN125 MCG PO; +VITAMIN D325 MC3 PO
[2021-06-12 05:08] LABS: BASOPHILS ABSOLUTE AUTO 0.06 K/mm3 (0.00-0.23); BASOPHILS PERCENT AUTO 1 % (0-2); EOSINOPHILS ABSOLUTE AUTO 0.07 K/mm3 (0.00-0.68); EOSINOPHILS PERCENT AUTO 1 % (0-6); Hematocrit 32.6 % (33.0-51.0); Hemoglobin 10.4 g/dL (11.5-16.0); IMMATURE GRAN ABSOLUTE AUTO 0.03 K/mm3 (0.00-0.10); IMMATURE GRAN PERCENT AUTO 0 % (0-1); LYMPHOCYTES ABSOLUTE AUTO 1.03 K/mm3 (0.84-5.20); LYMPHOCYTES PERCENT AUTO 15 % (21-46); MONOCYTES PERCENT AUTO 9 % (4-13); Mean Corpuscular HGB 30.5 pg (26.0-34.0); Mean Corpuscular HGB Conc 31.9 g/dL (31.5-36.5); Mean Corpuscular Volume 96 fL (80-100); NEUTROPHILS ABSOLUTE AUTO 5.03 K/mm3 (1.96-9.15); NEUTROPHILS PERCENT AUTO 74 % (41-73); Platelet Count 165 K/mm3 (150-400); RDW Coefficient Variation 16.6 % (11.7-14.2); RDW Standard Deviation 57.5 fL (35.1-46.3); Red Blood Cell Count 3.41 M/mm3 (3.80-5.20); White Blood Cell Count 6.82 K/mm3 (4.00-11.30)
[2021-06-12 05:28] LABS: PCO2 Arterial 99.3 mmHg (35-45); PO2 Arterial 63.3 mmHg (80-100); pH Blood Arterial <6.80 (7.35-7.45)
[2021-06-12 05:38] LABS: Albumin, Blood 2.6 g/dL (3.4-5.0); Albumin/Globulin Ratio 0.8 (0.8-1.8); Bun/Creatinine Ratio 17.1 (12.0-20.0); Calcium, Blood 8.2 mg/dL (8.5-10.1); Creatinine, Blood 2.34 mg/dL (0.40-1.00); Globulin, Blood 3.3 g/dL (2.2-4.0); Potassium, Blood 5.2 mmol/L (3.5-5.5); Total Protein, Blood 5.9 g/dL (6.4-8.2); Troponin I 0.015 ng/mL (0.000-0.040)
[2021-06-12 05:50] LABS: Mean Platelet Volume 14.2 fL (9.1-12.4)
== END 2021-06-12 08:30 ==
LOC: ER 04:34
PROVIDERS: Emergency Medicine
DX: I46.9 Cardiac arrest, cause unspecified (principal); I25.2 Old myocardial infarction; I48.91 Unspecified atrial fibrillation; I50.42 Chronic combined systolic (congestive) and diastolic (congestive) heart failure; Z87.891 Personal history of nicotine dependence; Z79.899 Other long term (current) drug therapy
CPT/HCPCS: 36430; 36556; 36600; 71275; 74174; 80053; 82330; 82803; 83605; 83690; 84484; 85025; 86850; 86900; 86901; 86920; 92950; 93005; 93010; 96374-59; 96375-59; 99291-25; C1751; J0461; J2543; J7030; J7060; P9016; Q9967